=== PATIENT | female | born 1945 | race Caucasian/White ===

== ENCOUNTER 2018-03-14 11:16 | Emergency (ER) | payer MEDICARE, BC ==
--- NOTE | 2018-03-14 11:36 | EDM.PDOC ---
ED HPI GENERAL MEDICAL PROBLEM - General Chief Complaint: Skin Complaint Stated Complaint: TICK BITE ON RT ARM Time Seen by Provider: 03/14/18 11:32 Source of Information: Reports: Patient History Limitations: Reports: No Limitations - History of Present Illness INITIAL COMMENTS - FREE TEXT/NARRATIVE: HISTORY AND PHYSICAL: History of present illness: Patient is a 72-year-old female who presents to the emergency room today with complaints of redness and warmth to a localized area to the right tricep area. She states on Sunday she did have a brown tick which she removed from her tricep area but since that time she has noticed localized redness and warmth. He does express concern that he may have been exposed to Lyme disease. States she does have itching and burning at the site that goes into her axillary and right breast Review of systems: As per history of present illness and below otherwise all systems reviewed and negative. Past medical history: As per history of present illness and as reviewed below otherwise noncontributory. Surgical history: As per history of present illness and as reviewed below otherwise noncontributory. Social history: No reported history of drug or alcohol abuse. Family history: As per history of present illness and as reviewed below otherwise noncontributory. Physical exam: General: Well-developed and well-nourished 72-year-old female. Alert and oriented. Nontoxic appearing and in no acute distress. HEENT: Atraumatic, normocephalic, pupils equal and reactive bilaterally, negative for conjunctival pallor or scleral icterus, mucous membranes moist, throat clear, neck supple, nontender, trachea midline. No drooling or trismus noted. No meningeal signs Lungs: Clear to auscultation, breath sounds equal bilaterally, chest nontender. Heart: S1S2, regular rate and rhythm without overt murmur Abdomen: Soft, nondistended, nontender. Negative for masses or hepatosplenomegaly. Negative for costovertebral tenderness. Pelvis: Stable nontender. Genitourinary: Deferred. Rectal: Deferred. Skin: Localized area of redness approximately the size of palmar surface to the tricep area on the right. Nonfluctuant. Appears cellulitic. Otherwise intact, warm, dry. No lesions or rashes noted. Extremities: Atraumatic, negative for cords or calf pain. Neurovascular unremarkable. Neuro: Awake, alert, oriented. Cranial nerves II through XII unremarkable. Cerebellum unremarkable. Motor and sensory unremarkable throughout. Exam nonfocal. Notes: The area of redness appears to be cellulitic. There is no bull's-eye rash noted. Unable to express any drainage from the area as it is nonfluctuant. We did discuss the likelihood of her having Lyme exposure is minimal as this was a brown would take. She states she is still concerned as there are "tics in [place] have had this". I am going to treat this as a cellulitis with Bactrim DS, although I will draw a Lyme titer. Education was done with them about close follow-up with her primary care provider for reevaluation. She voices understanding and is agreeable to plan of care. Denies any further questions at this time. Diagnostics: [employer]: [] Impression: Cellulitis Plan: 1. Please take the antibiotic as prescribed. Please continue to monitor the area that was outlined with marker for worsening symptoms/signs of infection. 2. Tylenol and/or ibuprofen as needed for pain management. 3. A Lyme titer was drawn today. These are a send out lab draw, you will be called if this is positive (adjust your antibiotic). Please follow-up with your primary care provider for reevaluation and possible retesting in the next couple weeks. 4. Return to the ED as needed and as discussed. Definitive disposition and diagnosis as appropriate pending reevaluation and review of above. Duration: Day(s): Location: Reports: Upper Extremity, Right right upper arm Pain Score (Numeric/FACES): 4 - Related Data Allergies Allergy/AdvReac Type Severity Reaction Status Date / Time codeine Allergy Nausea and Verified 03/14/18 11:27 Vomiting fish oil Allergy Hives Verified 03/14/18 11:27 shrimp Allergy Hives Verified 03/14/18 11:27 tramadol [From Ultram] Allergy Nausea and Verified 03/14/18 11:27 Vomiting Past Medical History HEENT History: Reports: Impaired Vision Cardiovascular History: Reports: None Respiratory History: Reports: None Gastrointestinal History: Reports: Other (See Below) Other Gastrointestinal History: acid reflux Genitourinary History: Reports: None [employer] History: Reports: Musculoskeletal History: Reports: Arthritis Neurological History: Reports: None Psychiatric History: Reports: Anxiety, Depression Endocrine/Metabolic History: Reports: None Hematologic History: Reports: None Immunologic History: Reports: None Oncologic (Cancer) History: Reports: None Dermatologic History: Reports: None - Infectious Disease History Infectious Disease History: Reports: Chicken Pox, Measles - Past Surgical History Head Surgeries/Procedures: Reports: None HEENT Surgical History: Reports: None Cardiovascular Surgical History: Reports: None Respiratory Surgical History: Reports: None GI Surgical History: Reports: Bariatric Procedure, Cholecystectomy Female Surgical History: Reports: Tubal Ligation Endocrine Surgical History: Reports: None Neurological Surgical History: Reports: None Musculoskeletal Surgical History: Reports: Carpal Tunnel, Other (See Below) Other Musculoskeletal Surgeries/Procedures:: back surgery Oncologic Surgical History: Reports: None Dermatological Surgical History: Reports: None Social & Family History - Family History Family Medical History: Noncontributory - Tobacco Use Smoking Status *Q: Never Smoker Second Hand Smoke Exposure: No - Caffeine Use Caffeine Use: Reports: Coffee - Recreational Drug Use Recreational Drug Use: No ED ROS GENERAL - Review of Systems Review Of Systems: ROS reveals no pertinent complaints other than HPI. ED EXAM, SKIN/RASH Exam: See Below (See dictation) Course - Vital Signs Last Recorded V/S: Last Vital Signs Temp 96.4 F 03/14/18 11:18 Pulse 60 03/14/18 11:18 Resp 18 03/14/18 11:18 BP 130/51 L 03/14/18 11:18 Pulse Ox 98 03/14/18 11:18 - Orders/Labs/Meds Orders: Active Orders 24 hr Category Date Time Status LYME, TOTAL AB TEST/REFLEX [REF] Stat Lab 03/14/18 11:32 Ordered Departure - Departure Time of Disposition: 11:36 Disposition: Home, Self-Care 01 Clinical Impression: Cellulitis Qualifiers: Site of cellulitis: extremity Site of cellulitis of extremity: upper extremity Laterality: right Qualified Code(s): L03.113 - Cellulitis of right upper limb - Discharge Information Instructions: Cellulitis, Adult, [id number] Referrals: PCP,None [Primary Care Provider] - Forms: ED Department Discharge Additional Instructions: The following information is given to patients seen in the emergency department who are being discharged to home. This information is to outline your options for follow-up care. We provide all patients seen in our emergency department with a follow-up referral. The need for follow-up, as well as the timing and circumstances, are variable depending upon the specifics of your emergency department visit. If you don't have a primary care physician on staff, we will provide you with a referral. We always advise you to contact your personal physician following an emergency department visit to inform them of the circumstance of the visit and for follow-up with them and/or the need for any referrals to a consulting specialist. The emergency department will also refer you to a specialist when appropriate. This referral assures that you have the opportunity for follow-up care with a specialist. All of these measure are taken in an effort to provide you with optimal care, which includes your follow-up. Under all circumstances we always encourage you to contact your private physician who remains a resource for coordinating your care. When calling for follow-up care, please make the office aware that this follow-up is from your recent emergency room visit. If for any reason you are refused follow-up, please contact the Emergency Department at and asked to speak to the emergency department charge nurse. Primary Care [address] [place] [id number] 1. Please take the antibiotic as prescribed. Please continue to monitor the area that was outlined with marker for worsening symptoms/signs of infection. 2. Tylenol and/or ibuprofen as needed for pain management. 3. A Lyme titer was drawn today. These are a send out lab draw, you will be called if this is positive (adjust your antibiotic). Please follow-up with your primary care provider for reevaluation and possible retesting in the next couple weeks. 4. Return to the ED as needed and as discussed. - My Orders Last 24 Hours: My Active Orders 03/14/18 11:32 LYME, TOTAL AB TEST/REFLEX [REF] Stat - Assessment/Plan Last 24 Hours: My Active Orders 03/14/18 11:32 LYME, TOTAL AB TEST/REFLEX [REF] Stat
== END 2018-03-14 11:57 | disposition home or self-care (01) ==
LOC: MW.ED 11:16
DX: L03.113 Cellulitis of right upper limb (principal); F41.9 Anxiety disorder, unspecified; F32.9 Major depressive disorder, single episode, unspecified; Z88.5 Allergy status to narcotic agent; Z91.013 Allergy to seafood
CPT/HCPCS: 36415; 86618; 99282